=== PATIENT | male | born 1965 | race Two or more races ===

== ENCOUNTER 2024-02-01 11:57 | Emergency (ER) | payer MEDICARE, MEDICAID, SELFPAY ==
[2024-02-01 12:00] VITALS: BP 132/88; PULSE 62; RESP 19; TEMP 36.9; O2SAT 99; BMI 34.9
--- NOTE | 2024-02-01 12:00 | EKG_ITS ---
[facility] Test Date: 2024-02-01 Pat Name: FLORENCIO ELKINS Department: Room: - Gender: Male Mate Chief: : 1965 Requested By: ED Temporary Provider Order Number: [id number] Reading MD: ED Temporary Provider Measurements Intervals [place] Rate: 62 P: 51 OK: 148 QRS: -68 QRSD: 148 T: -6 QT: 417 QTc: 426 Interpretive Statements SINUS RHYTHM WITH OCCASIONAL SUPRAVENTRICULAR PREMATURE COMPLEXES RIGHT BUNDLE BRANCH BLOCK [120+ ms QRS DURATION, UPRIGHT V1, 40+ ms S IN I/aVL/V4/V5/V6] LEFT ANTERIOR FASCICULAR BLOCK [QRS AXIS <= -45, QR IN I, RS IN II] Compared to ECG 11/03/2022 23:03:54 No significant changes /store/S0/[id number].pdf
--- NOTE | 2024-02-01 12:27 | XR_ITS ---
Examination: PA lateral chest 2 views TECHNIQUE: Upright PA lateral chest 2 views Exam date and time: February 01, 2024 1234 hours INDICATIONS: Onset chest pain today FINDINGS: Normal heart size Lungs are clear The osseous structures are intact IMPRESSION: No active disease
--- NOTE | 2024-02-01 12:29 | PD.EDRME ---
Rapid Medical Screening Exam RME Arrival date/time: 02/01/24 11:57 58-year-old male presents to the emergency department with complaints of chest pain x 2 days. I have greeted and performed a focused initial assessment of this patient. Initial appropriate labs ordered at this time. A comprehensive ED assessment and evaluation of the patient and analysis of all test and completion of medical decision making process will be conducted by additional ED provider. Chief Complaint: Chest Pain Time Seen by Provider: 02/01/24 12:13 Vital signs: Vital Signs Temperature 98.5 F 02/01/24 12:00 Pulse Rate 62 02/01/24 12:00 Respiratory Rate 19 02/01/24 12:00 Blood Pressure 132/88 H 02/01/24 12:00 Pulse Oximetry (%) 99 02/01/24 12:00 Oxygen Delivery Method Room Air 02/01/24 12:00
[2024-02-01 12:38] LABS: Basophils % (Auto) 0 % (0-2.5); Eosinophils % (Auto) 1 % (0-10); Hematocrit 43.5 % (41.0-53.0); Hemoglobin 15.3 g/dL (13.5-16.0); Immature Granulocytes % (Auto) 0 % (0-0); Immature Granulocytes Auto 0.01 Thou/mm3 (0.00-0.00); Lymphocytes # (Auto) 1.3 Thou/mm3 (1.0-4.8); Lymphocytes % (Auto) 34 % (10-50); Mean Corpuscular HGB Conc 35.2 g/dl (31.0-37.0); Mean Corpuscular Volume 94 fL (80-100); Monocytes # (Auto) 0.3 Thou/mm3 (0.0-0.8); Monocytes % (Auto) 8 % (0-12); Neutrophils # (Auto) 2.3 Thou/mm3 (1.8-7.7); Neutrophils % (Auto) 57 % (37-80); Nucleated Red Blood Cell % 0 /100 WBC (0); Platelet Count 136 Thou/mm3 (140-440); RDW Standard Deviation 42.1 fL (35.1-43.9); Red Blood Count 4.64 Miln/mm3 (4.50-5.90)
[2024-02-01 13:11] LABS: Alanine Aminotransferase 21 U/L (10-49); Albumin, Serum 4.8 gm/dL (3.5-5.0); Albumin/Globulin Ratio 1.5 (1.2-2.2); Alkaline Phosphatase 69 U/L (46-116); Anion Gap 6 (7-16); Aspartate Amino Transferase 20 U/L (0-34); BUN/Creatinine Ratio 15 Ratio (12-20); Bilirubin,Total 0.4 mg/dL (0.3-1.2); Blood Urea Nitrogen 16 mg/dL (9-23); Calcium 10.2 mg/dL (8.3-10.6); Calcium (Corrected) 10.2 mg/dL (8.5-10.1); Carbon Dioxide 28.5 mMol/L (20.0-31.0); Chloride 103 mMol/L (98-107); Creatinine (Component) 1.1 mg/dL (0.6-1.3); Estimated Creatinine Clearance 79.5 mL/min (>60); Globulin 3.3 gm/dL (2.3-3.5); Glucose 122 mg/dL (74-106); Lipase 37 U/L (12-53); Osmolality,Calculated 276 (275-295); Potassium 3.4 mMol/L (3.4-5.1); Sodium 137 mMol/L (136-145); Total Protein 8.1 gm/dL (5.7-8.2); Troponin I < 0.020 ng/mL (0.0-0.045); eGFR > 60 See Note
[2024-02-01 13:40] LABS: Collection Type, Urine Clean Catch; Squamous Epithelial Cell,Urine 0 /hpf (0-5)
[2024-02-01 13:46] LABS: Bilirubin,Urine Negative (Negative); Blood,Urine Negative (Negative); Clarity,Urine Clear (Clear/Hazy); Color,Urine Colorless (Lt Yel-Yel); Glucose, Urine Negative (Negative); Ketones,Urine Negative (Negative); Leukocyte Esterase,Urine Negative (Negative); Nitrite,Urine Negative (Negative); PH,Urine 6.5 (5.0-7.0); Protein,Urine Negative (Neg - Trace); RBC,Urine 2 /hpf (0-3); Urobilinogen,Urine Negative mg/dL (0.0-1.0); WBC,Urine < 1 /hpf (0-5)
--- NOTE | 2024-02-01 17:17 | PD.EDCHEST ---
ED Chest Pain RME/HPI General Chief Complaint: Chest Pain Stated Complaint: CHEST PAIN WITH HTN; HEADACHE Time Seen by Provider: 02/01/24 12:13 Arrival date/time: 02/01/24 11:57 RME / HPI RME / HPI narrative: 02/01/24 11:57 58-year-old male presents to the emergency department with complaints of chest pain x 2 days. I have greeted and performed a focused initial assessment of this patient. Initial appropriate labs ordered at this time. A comprehensive ED assessment and evaluation of the patient and analysis of all test and completion of medical decision making process will be conducted by additional ED provider. DR. ALONZO SANTANA ED EVALUATION 58 year old male with history of hypertension, diabetes, anxiety presents to the ED for complaint of chest pain today. States about 15 and 10 days ago had experienced similar episodes of burning chest pain, located to the center of his chest without radiation, rating as moderate. Accompanied by intermittent shortness of breath and dizziness. Additionally reports some time last night had a sudden sharp pain to the left side of his head, near his ear, which made him feel anxious. Denies fevers, chills, sore throat, abdominal pain, n/v/d, or urinary symptoms. Related Data Home Medications ?Medication ?Instructions ?Recorded ?Confirmed benazepril 40 mg tablet 40 mg PO QDAY 08/06/20 01/09/22 amlodipine 10 mg tablet 10 mg PO QDAY 10/02/20 01/09/22 hydrocodone 10 mg-acetaminophen 1 tab PO Q6HR PRN Pain 10/02/20 01/09/22 325 mg tablet Previous Rx's ?Medication ?Instructions ?Recorded aluminum-mag hydroxide-simethicone 10 ml PO QID PRN indigestion #300 11/12/21 200 mg-200 mg-20 mg/5 mL oral susp mL (Maalox Advanced) omeprazole 20 mg capsule,delayed 20 mg PO QDAY #30 caps 11/12/21 release metoclopramide HCl 10 mg tablet 10 mg PO Q8H #90 tabs 01/09/22 (Reglan) sucralfate 1 gram tablet (Carafate) 1 g PO QID #120 tabs 01/09/22 Allergies Allergy/AdvReac Type Severity Reaction Status Date / Time No Known Allergies Allergy Verified 02/01/24 11:58 Review of Systems Review of Systems Narrative Review of Systems: GEN: No fever, no chills, no weight loss EYES: No discharge, no visual changes, no pain HEENT: No ear pain, no congestion, no sore throat PULM: +intermittent shortness of breath, no cough, no congestion CV: + chest pain, no dyspnea on exertion, no palpitations GI: No nausea, no vomiting, no diarrhea, no pain, no constipation : No frequency, no urgency and no dysuria MUSC/SKEL No joint pain, no back pain SKIN: No rash PSYCH: No hallucinations, no depression HEME/LYMPH: No easy bleeding or bruising tendencies NEURO: No weakness, +sharp pain to left side of head, no headache at this time ED Exam Narrative Physical exam: GENERAL APPEARANCE: Well hydrated, well nourished, in no acute distress. VITALS: All vitals were reviewed and the pulse ox is 99% on room air which is normal according to my interpretation. HEENT: Normocephalic, atramatic, EOMI, EACs are patent. There is no bulge or retraction. Throat without erythema or exudate. Moist oromucosa. No jaundice NECK: Supple, no JVD or bruits. CARDIOVASCULAR: Heart regular without S3-S4 or murmur. No rubs or gallops. LUNGS/CHEST: Clear to auscultation bilaterally. No rales, rhonchi, or wheezing. Normal inspection. ABDOMEN: Soft, nontender, with normal bowel sounds. No pulsatile masses. No rebound, rigidity, or guarding. No incarcerated hernia. Normal inspection and palpation. EXTREMITIES: Normal inspection and palpation. No edema, clubbing, or cyanosis. Intact CSM SKIN: Warm and dry without rashes. Normal inspection. MUSCULOSKELETAL: Normal inspection. No gross deformity, full ROM all extremities NEURO: Alert and oriented x3. Cranial nerves II through XII grossly intact. There are no other motor or sensory deficits noted. PSYCHIATRIC: Normal mood and affect. No psychosis Course Quality Measures none Orders Category Date Time Status EKG (ED ONLY) *Do not use* NOW Care 02/01/24 12:00 Completed EKG (ED Only) Stat Exams 02/01/24 12:00 Draft XR chest 2V Stat Exams 02/01/24 12:27 Completed CBC Stat Lab 02/01/24 12:32 Completed Comprehensive Metabolic Panel Stat Lab 02/01/24 12:32 Completed Lipase Stat Lab 02/01/24 12:32 Completed Magnesium Stat Lab 02/01/24 12:32 Completed Troponin I Stat Lab 02/01/24 12:32 Completed Troponin I Stat Lab 02/01/24 17:27 Ordered Urinalysis Stat Lab 02/01/24 13:22 Completed Vital Signs Vital signs: Vital Signs Temperature 98.5 F 02/01/24 12:00 Pulse Rate 62 02/01/24 12:00 Respiratory Rate 19 02/01/24 12:00 Blood Pressure 132/88 H 02/01/24 12:00 Pulse Oximetry (%) 99 02/01/24 12:00 Oxygen Delivery Method Room Air 02/01/24 12:00 Chest Pain MDM Narrative MDM Narrative:: Shannan Elam am scribing for and in the presence of Dr. Huertas. CBC is negative. CMP and lipase are negative. Magnesium negative. Troponin negative. UA is negative. Chest x-ray interpreted by me: Clear lungs. Heart normal. Mediastinum normal. Normal bones. No pneumothorax. No CHF. Twelve-lead EKG that was done at 1218 interpreted by me: Normal sinus rhythm. Heart rate of 62. Left axis deviation. Right bundle branch block. No ST elevation or depression. No PVC. No STEMI. Regular rate and rhythm. I saw the patient at approximately 5:30 PM. I ordered for the repeated troponin. 6 PM, pending repeated troponin, the patient is stable and is signed out to Patient data External records reviewed:: [facility] previous records (I reviewed ED visit on 11/03/2022) Clinical information provided by:: patient Social determinants that could affect healthcare access:: none Patient has the following chronic illnesses:: HTN, DM, anxiety How is presenting disease/condition affected by chronic disease/condition?: exacerbated by Evaluation data The following diagnostics were reviewed and interpreted by me:: lab results, radiology exam(s) and EKG tracing(s) Lab and/or radiology exams considered but not ordered:: None Interpretation Summary: Ordering Physician: Tanya Larios Date of Service: 02/01/24 Procedure(s): XR chest 2V Accession Number(s): [id number] cc: Enrique Bermudez MD; Larios,Tanya M [employer]~ Examination: PA lateral chest 2 views TECHNIQUE: Upright PA lateral chest 2 views Exam date and time: February 01, 2024 1234 hours INDICATIONS: Onset chest pain today FINDINGS: Normal heart size Lungs are clear The osseous structures are intact IMPRESSION: No active disease Dictated By: Enrique Bermudez MD Signed By: <Electronically signed by Enrique Bermudez MD in OV> 02/01/24 1302 Medications / Prescriptions Medications or Prescriptions considered but not ordered:: None Medication administrations:: See above Consultations Consultation(s) initiated? (list below): No Diagnosis Chest Pain Differential Diagnosis: pneumothorax, stable angina, atypical chest pain, st elevation myocardial infarction, costochondritis, chest pain and biliary colic Most likely diagnosis given after review of the tests above:: Chest pain, pending repeated troponin Admission Indicated Admission indicated?: not indicated Explain why admission is indicated or not indicated:: Patient signed out pending delta trop Admission Request Was there a request for admission?: No Disposition Plan Disposition Plan: other (specify) (1800: Patient signed out to Dr. Coe pending delta trop) Discharge Plan Plan Disposition Comment: Stable at signout Prescriptions/Referrals Prescriptions/Med Rec: No Action benazepril 40 mg Tablet 40 mg PO QDAY hydrocodone-acetaminophen 10-325 mg tablet 1 tab PO Q6HR PRN (Reason: Pain) Hold Instructions: Resume on 01/10/22. amlodipine 10 mg tablet 10 mg PO QDAY alum-mag hydroxide-simeth [Maalox Advanced] 200-200-20 mg/5 mL suspension 10 ml PO QID PRN (Reason: indigestion) Qty: 300 0RF Rx Instructions: administer between meals and at bedtime omeprazole 20 mg capsule,delayed release(DR/EC) 20 mg PO QDAY Qty: 30 0RF metoclopramide HCl [Reglan] 10 mg Tablet 10 mg PO Q8H Qty: 90 2RF sucralfate [Carafate] 1 gram Tablet 1 g PO QID Qty: 120 2RF Referrals: Jules Pagan MD [Primary Care Provider] - In 1 week Problem List Clinical Impression: Chest pain Patient/Caregiver Discharge Instructions Print Language: Croatian
[2024-02-01 18:45] LABS: Troponin I < 0.020 ng/mL (0.0-0.045)
[2024-02-01 20:28] VITALS: BP 125/67; PULSE 86; RESP 16; TEMP 36.8; O2SAT 99
== END 2024-02-01 20:28 | disposition home or self-care (01) ==
PROVIDERS: Nurse Practitioner Primary Care; Emergency Provider Emergency Medicine; PCP Family Medicine
DX: R07.9 Chest pain, unspecified (principal); I45.10 Unspecified right bundle-branch block; I10 Essential (primary) hypertension; E11.9 Type 2 diabetes mellitus without complications; F41.9 Anxiety disorder, unspecified
CPT/HCPCS: 36415; 71046; 80053; 81001; 83690; 83735; 84484; 85025; 93005; 99283

== ENCOUNTER 2024-02-28 20:10 | Emergency (ER) | payer MEDICARE, MEDICAID, SELFPAY ==
--- NOTE | 2024-02-28 20:14 | EKG_ITS ---
[facility] Test Date: 2024-02-28 Pat Name: FLORENCIO ELKINS Department: Room: - Gender: Male Vice President Safety: : 1965 Requested By: ED Temporary Provider Order Number: [id number] Reading MD: ED Temporary Provider Measurements Intervals [place] Rate: 74 P: 48 DE: 154 QRS: -68 QRSD: 148 T: -12 QT: 404 QTc: 448 Interpretive Statements SINUS RHYTHM WITH OCCASIONAL SUPRAVENTRICULAR PREMATURE COMPLEXES RIGHT BUNDLE BRANCH BLOCK [120+ ms QRS DURATION, UPRIGHT V1, 40+ ms S IN I/aVL/V4/V5/V6] LEFT ANTERIOR FASCICULAR BLOCK [QRS AXIS <= -45, QR IN I, RS IN II] POSSIBLE SEPTAL MYOCARDIAL INFARCTION , PROBABLY OLD [30 ms Q WAVE IN V1/V2] MODERATE T-WAVE ABNORMALITY, CONSIDER ANTEROLATERAL ISCHEMIA [-0.1+ mV T WAVE IN V3-V6] Compared to ECG 02/01/2024 12:18:30 Myocardial infarct finding now present T-wave abnormality now present Possible ischemia now present /store/S0/[id number].pdf
[2024-02-28 20:23] VITALS: BP 171/119; BP 172/111; PULSE 65; RESP 20; TEMP 37.1; O2SAT 98
--- NOTE | 2024-02-28 20:31 | XR_ITS ---
Examination: PA chest single view Technique: Upright PA chest single view Exam date and time: September 28, 20232039 hrs. Comparison February 01, 2024 Indications: Chest pain today. Findings: Normal heart size Lungs are clear. The osseous structures are intact Impression: No active disease
--- NOTE | 2024-02-28 20:31 | PD.EDRME ---
Rapid Medical Screening Exam E Arrival date/time: 02/28/24 20:10 58M with history of HTN and pre-DM presents to ED with 3 hours of CP and some N/V. Patient denies URI symptoms. Chief Complaint: Chest Pain Vital signs: Vital Signs Temperature 98.8 F 02/28/24 20:23 Pulse Rate 65 02/28/24 20:23 Respiratory Rate 20 02/28/24 20:23 Blood Pressure 172/111 H 02/28/24 20:23 Pulse Oximetry (%) 98 02/28/24 20:23 Oxygen Delivery Method Room Air 02/28/24 20:23
[2024-02-28 20:47] LABS: Basophils % (Auto) 0 % (0-2.5); Eosinophils # (Auto) 0.1 Thou/mm3 (0.0-0.5); Eosinophils % (Auto) 2 % (0-10); Hematocrit 45.4 % (41.0-53.0); Immature Granulocytes % (Auto) 0 % (0-0); Lymphocytes # (Auto) 2.8 Thou/mm3 (1.0-4.8); Lymphocytes % (Auto) 49 % (10-50); Mean Corpuscular HGB Conc 35.2 g/dl (31.0-37.0); Mean Corpuscular Hemoglobin 33.1 pg (25.0-35.0); Mean Corpuscular Volume 94 fL (80-100); Monocytes # (Auto) 0.5 Thou/mm3 (0.0-0.8); Monocytes % (Auto) 8 % (0-12); Neutrophils # (Auto) 2.4 Thou/mm3 (1.8-7.7); Neutrophils % (Auto) 41 % (37-80); Nucleated Red Blood Cell % 0 /100 WBC (0); Platelet Count 144 Thou/mm3 (140-440); RDW Standard Deviation 42.4 fL (35.1-43.9); Red Blood Count 4.84 Miln/mm3 (4.50-5.90); White Blood Count 5.7 Thou/mm3 (3.8-10.6)
[2024-02-28] MEDS: ONDANSETRON ODT 4 MG TABRAP PO (20:48)
[2024-02-28 21:04] LABS: Alanine Aminotransferase 12 U/L (10-49); Albumin, Serum 5.1 gm/dL (3.5-5.0); Albumin/Globulin Ratio 1.4 (1.2-2.2); Alkaline Phosphatase 80 U/L (46-116); Anion Gap 8 (7-16); Aspartate Amino Transferase 18 U/L (0-34); BUN/Creatinine Ratio 15 Ratio (12-20); Bilirubin,Total 0.4 mg/dL (0.3-1.2); Blood Urea Nitrogen 16 mg/dL (9-23); Calcium 10.7 mg/dL (8.3-10.6); Calcium (Corrected) 10.7 mg/dL (8.5-10.1); Carbon Dioxide 30.3 mMol/L (20.0-31.0); Chloride 101 mMol/L (98-107); Creatinine (Component) 1.1 mg/dL (0.6-1.3); Globulin 3.6 gm/dL (2.3-3.5); Glucose 149 mg/dL (74-106); Lipase 84 U/L (12-53); Osmolality,Calculated 281 (275-295); Potassium 3.3 mMol/L (3.4-5.1); Sodium 139 mMol/L (136-145); Total Protein 8.7 gm/dL (5.7-8.2); Troponin I < 0.020 ng/mL (0.0-0.045); eGFR > 60 See Note
[2024-02-28 21:21] VITALS: BP 175/97; PULSE 67; RESP 20; O2SAT 97
[2024-02-28 21:48] LABS: Collection Type, Urine Clean Catch; Squamous Epithelial Cell,Urine 0 /hpf (0-5)
[2024-02-28 22:16] LABS: Bilirubin,Urine Negative (Negative); Blood,Urine Negative (Negative); Clarity,Urine Clear (Clear/Hazy); Color,Urine Colorless (Lt Yel-Yel); Culture Indicated,Urine Not Indicated; Glucose, Urine Negative (Negative); Ketones,Urine Negative (Negative); Leukocyte Esterase,Urine Negative (Negative); Nitrite,Urine Negative (Negative); PH,Urine 6.5 (5.0-7.0); Protein,Urine Negative (Neg - Trace); RBC,Urine < 1 /hpf (0-3); Specific Gravity,Urine 1.007 (1.001-1.035); Urobilinogen,Urine Negative mg/dL (0.0-1.0); WBC,Urine < 1 /hpf (0-5)
[2024-02-28 23:06] LABS: Glucose Estimated Average 111 mg/dL (80-131); Hemoglobin A1C 5.5 % Hgb (4.8-6.0)
[2024-02-28 23:21] LABS: Troponin I < 0.020 ng/mL (0.0-0.045)
[2024-02-28 23:33] LABS: Amphetamine/Methamp Scrn,U Negative (Negative); Barbiturate Screen,Urine Negative (Negative); Benzodiazepines Screen,Urine Negative (Negative); Benzoylecgonine Screen, Ur Negative (Negative); Fentanyl Screen,Urine Negative (Negative); Opiate Screen,Urine Positive (Negative); THC Screen,Urine Negative (Negative)
[2024-02-29 00:26] VITALS: BP 118/78; PULSE 75; RESP 16; TEMP 36.7; O2SAT 96
--- NOTE | 2024-03-29 13:14 | EDNOTE_ITS ---
ED Chest Pain RME/HPI General Chief Complaint: Chest Pain Stated Complaint: Chest Pain for 3 hrs Arrival date/time: 02/28/24 20:10 RME / HPI RME / HPI narrative: 02/28/24 20:10 58M with history of HTN and pre-DM presents to ED with 3 hours of CP and some N/V. Patient denies URI symptoms. DR RODNEY MAIN ED EVALUATION: 58 yo male patient with h/o HTN c/o substernal CP, nonradiating with mild SOB. Similar episode last month. Denies fever, cough. Related Data Home Medications ?Medication ?Instructions ?Recorded ?Confirmed benazepril 40 mg tablet 40 mg PO QDAY 08/06/20 01/09/22 amlodipine 10 mg tablet 10 mg PO QDAY 10/02/20 01/09/22 hydrocodone 10 mg-acetaminophen 1 tab PO Q6HR PRN Pain 10/02/20 01/09/22 325 mg tablet Previous Rx's ?Medication ?Instructions ?Recorded aluminum-mag hydroxide-simethicone 10 ml PO QID PRN indigestion #300 11/12/21 200 mg-200 mg-20 mg/5 mL oral susp mL (Maalox Advanced) omeprazole 20 mg capsule,delayed 20 mg PO QDAY #30 caps 11/12/21 release metoclopramide HCl 10 mg tablet 10 mg PO Q8H #90 tabs 01/09/22 (Reglan) sucralfate 1 gram tablet (Carafate) 1 g PO QID #120 tabs 01/09/22 Allergies Allergy/AdvReac Type Severity Reaction Status Date / Time No Known Allergies Allergy Verified 02/01/24 11:58 Review of Systems Review of Systems Narrative Review of Systems: CONST: Negative for fever, body aches and chills. HENT: Negative for neck pain/stiffness, headache, congestion, sore throat, swelling. EYES: Negative for discharge/pain or vision changes. RESP: Negative for cough/hemoptysis and shortness of breath. CV: Negative chest pain, difficulty breathing, palpitations. ABD: Negative pain, nausea, vomiting. : Negative increase frequency, dysuria, blood in urine or stool. MUSC: Negative for muscle aches, edema. SKIN: Negative rash, lesions/sores. NEURO: Negative headache, dizziness, weakness. ED Exam Narrative Physical exam: GENERAL APPEARANCE: alert and oriented x 4, well-developed, well-nourished, no acute distress HEENT: Normocephalic, atraumatic; pupils equal, round, reactive to light; EOMI; mucous membranes pink, moist; oropharynx clear NECK: Supple LUNGS: CTABL; no wheezes, no rales, no rhonchi HEART: Regular rate, regular rhythm; normal S1, S2; no murmurs ABDOMEN: non distended; normal BS; soft, no tenderness, no guarding, no rebound; no masses, no organomegaly, no hernia BACK: no CVA tenderness EXTREMITIES: atraumatic; no edema NEUROLOGIC: awake; alert and oriented x4; cranial nerves II-XII grossly intact; no focal sensory or motor deficits PSYCHIATRIC: appropriate mood and affect SKIN: warm, dry, normal color; no rashes Course Quality Measures none Orders Category Date Time Status EKG (ED ONLY) *Do not use* NOW Care 02/28/24 20:14 Completed EKG (ED Only) Stat Exams 02/28/24 20:14 Draft XR chest 1V portable Stat Exams 02/28/24 20:31 Completed A1C [Glycohemoglobin w (eAG)] Stat Lab 02/28/24 20:38 Completed CBC Stat Lab 02/28/24 20:38 Completed Comprehensive Metabolic Panel Stat Lab 02/28/24 20:38 Completed Drug Screen,Urine Stat Lab 02/28/24 21:36 Completed Lipase Stat Lab 02/28/24 20:38 Completed Magnesium Stat Lab 02/28/24 20:38 Completed Troponin I Stat Lab 02/28/24 20:38 Completed Troponin I Stat Lab 02/28/24 22:54 Completed Urinalysis, C/S if Indicated Stat Lab 02/28/24 21:36 Completed Ondansetron Odt [Zofran Odt] Med 02/28/24 20:31 Discontinued 4 mg PO X1 ONE Vital Signs Vital signs: Vital Signs Temperature 98.8 F 02/28/24 20:23 Pulse Rate 65 02/28/24 20:23 Respiratory Rate 20 02/28/24 20:23 Blood Pressure 172/111 H 02/28/24 20:23 Pulse Oximetry (%) 98 02/28/24 20:23 Oxygen Delivery Method Room Air 02/28/24 20:23 Chest Pain Patient data External records reviewed:: [facility] previous records Clinical information provided by:: patient Social determinants that could affect healthcare access:: none Patient has the following chronic illnesses:: HTN How is presenting disease/condition affected by chronic disease/condition?: uneffected by Evaluation data The following diagnostics were reviewed and interpreted by me:: lab results, radiology exam(s) and EKG tracing(s) Lab and/or radiology exams considered but not ordered:: none Interpretation Summary: as above Medications / Prescriptions Medications or Prescriptions considered but not ordered:: none Medication administrations:: Medication Administration History Discontinued Medications Ondansetron HCl (Ondansetron Odt 4 Mg Tabrap) 4 mg PO X1 ONE; Protocol Stop: 02/28/24 20:32 Last Admin: 02/28/24 20:48 Dose: 4 mg Documented By: SF as above Consultations Consultation(s) initiated? (list below): No Diagnosis Chest Pain Differential Diagnosis: pneumothorax, stable angina, unstable angina pectoris, atypical chest pain, st elevation myocardial infarction and chest pain Most likely diagnosis given after review of the tests above:: chest pain Admission Indicated Admission indicated?: not indicated Admission Request Was there a request for admission?: No Disposition Plan Disposition Plan: Discharge Discharge Attestation Discharge Attestation: The patient and all family members were given an opportunity to ask questions and understood the discharge instructions. Discharge instructions specifically effects, indications for sooner follow up or return to the emergency department, and the expected course of current diagnosis. Patient condition: Stable Discharge Plan Plan Patient Disposition: HOME (Self Care) Prescriptions/Referrals Prescriptions/Med Rec: No Action benazepril 40 mg Tablet 40 mg PO QDAY hydrocodone-acetaminophen 10-325 mg tablet 1 tab PO Q6HR PRN (Reason: Pain) Hold Instructions: Resume on 01/10/22. amlodipine 10 mg tablet 10 mg PO QDAY alum-mag hydroxide-simeth [Maalox Advanced] 200-200-20 mg/5 mL suspension 10 ml PO QID PRN (Reason: indigestion) Qty: 300 0RF Rx Instructions: administer between meals and at bedtime omeprazole 20 mg capsule,delayed release(DR/EC) 20 mg PO QDAY Qty: 30 0RF metoclopramide HCl [Reglan] 10 mg Tablet 10 mg PO Q8H Qty: 90 2RF sucralfate [Carafate] 1 gram Tablet 1 g PO QID Qty: 120 2RF Referrals: Jules Pagan MD [Primary Care Provider] - In 1 week Problem List Clinical Impression: Chest pain Patient/Caregiver Discharge Instructions Education Materials: ED Chest Pain, Uncertain Cause Print Language: Monegasque Stand Alone Forms: Erika Award Info., Patient Portal Info Letter
== END 2024-02-29 00:27 | disposition home or self-care (01) ==
PROVIDERS: Physician Assistant; Emergency Provider Emergency Medicine; PCP Family Medicine
DX: R07.9 Chest pain, unspecified (principal); R11.2 Nausea with vomiting, unspecified; I49.1 Atrial premature depolarization; I45.10 Unspecified right bundle-branch block; I44.4 Left anterior fascicular block; I10 Essential (primary) hypertension
CPT/HCPCS: 36415; 71045; 80053; 80307; 81001; 83036; 83690; 83735; 84484; 85025; 93005; 99283; Q0162

== ENCOUNTER → 2024-05-27 | Outpatient (CLI) | payer MEDICARE, MEDICAID, SELFPAY ==
[2024-05-27 08:39] LABS: Basophils % (Auto) 0 % (0-2.5); Eosinophils # (Auto) 0.1 Thou/mm3 (0.0-0.5); Eosinophils % (Auto) 2 % (0-10); Hematocrit 42.4 % (41.0-53.0); Hemoglobin 14.8 g/dL (13.5-16.0); Immature Granulocytes % (Auto) 0 % (0-0); Lymphocytes # (Auto) 1.6 Thou/mm3 (1.0-4.8); Lymphocytes % (Auto) 45 % (10-50); Mean Corpuscular HGB Conc 34.9 g/dl (31.0-37.0); Mean Corpuscular Hemoglobin 33.4 pg (25.0-35.0); Mean Corpuscular Volume 96 fL (80-100); Monocytes # (Auto) 0.3 Thou/mm3 (0.0-0.8); Monocytes % (Auto) 9 % (0-12); Neutrophils # (Auto) 1.5 Thou/mm3 (1.8-7.7); Neutrophils % (Auto) 43 % (37-80); Nucleated Red Blood Cell % 0 /100 WBC (0); Platelet Count 148 Thou/mm3 (140-440); RDW Standard Deviation 44.2 fL (35.1-43.9); Red Blood Count 4.43 Miln/mm3 (4.50-5.90); White Blood Count 3.4 Thou/mm3 (3.8-10.6)
[2024-05-27 09:29] LABS: Collection Type, Urine Clean Catch
[2024-05-27 09:56] LABS: Glucose Estimated Average 114 mg/dL (80-131); Hemoglobin A1C 5.6 % Hgb (4.8-6.0)
[2024-05-27 10:02] LABS: Anion Gap 10 (7-16); BUN/Creatinine Ratio 22 Ratio (12-20); Blood Urea Nitrogen 22 mg/dL (9-23); Chloride 106 mMol/L (98-107); Potassium 3.6 mMol/L (3.4-5.1); Sodium 145 mMol/L (136-145); eGFR > 60 See Note
[2024-05-27 10:03] LABS: Alanine Aminotransferase 20 U/L (10-49); Albumin, Serum 4.4 gm/dL (3.5-5.0); Albumin/Globulin Ratio 1.4 (1.2-2.2); Alkaline Phosphatase 54 U/L (46-116); Aspartate Amino Transferase 21 U/L (0-34); Bilirubin,Total 0.6 mg/dL (0.3-1.2); Cardiac Risk Estimate 3.8 RATIO (4.0-6.7); Cholesterol 215 mg/dL (132-200); Globulin 3.2 gm/dL (2.3-3.5); Glucose 101 mg/dL (74-106); HDL Cholesterol 56 mg/dL (40-60); LDL Cholesterol,Calculated 137 mg/dL (0-130); Osmolality,Calculated 292 (275-295); Thyroid Stimulating Hormone 0.33 uIU/mL (0.55-4.78); Total Protein 7.6 gm/dL (5.7-8.2); Triglycerides 111 mg/dL (30-150)
[2024-05-27 10:11] LABS: Prostate Specific Antigen 2.65 ng/mL (0-4.00)
[2024-05-27 10:14] LABS: Bilirubin,Urine Negative (Negative); Blood,Urine Negative (Negative); Clarity,Urine Clear (Clear/Hazy); Color,Urine Lt-Yellow (Lt Yel-Yel); Culture Indicated,Urine Not Indicated; Glucose, Urine Negative (Negative); Ketones,Urine Negative (Negative); Leukocyte Esterase,Urine Negative (Negative); Nitrite,Urine Negative (Negative); Protein,Urine Negative (Neg - Trace); RBC,Urine < 1 /hpf (0-3); Specific Gravity,Urine 1.022 (1.001-1.035); Squamous Epithelial Cell,Urine < 1 /hpf (0-5); Urobilinogen,Urine Negative mg/dL (0.0-1.0); WBC,Urine < 1 /hpf (0-5)
[2024-05-30 06:41] LABS: Fecal Globin Result NOT DETECTED (NOT DETECTED)
== END | disposition home or self-care (01) ==
PROVIDERS: PCP Family Medicine; Referring Provider Nurse Practitioner Family; Visit Provider Nurse Practitioner Family
DX: Z00.00 Encounter for general adult medical examination without abnormal findings (principal)
CPT/HCPCS: 36415; 80053; 80061; 81001; 82274; 83036; 84153; 84443; 85025; G0328

== ENCOUNTER → 2024-07-31 | Outpatient (CLI) | payer MEDICARE, MEDICAID, SELFPAY ==
--- NOTE | 2024-07-31 09:08 | XR_ITS ---
Examination: Shoulder,left, 3 views Technique: Shoulder AP internal rotation, AP external rotation, Y view shoulder, 3 views Exam date and time :July 31, 2024 at 0934 hours INDICATIONS: Left shoulder pain beginning 3 months ago. FINDINGS: Moderate osteopenia Moderate narrowing glenohumeral joint No shoulder fracture or dislocation IMPRESSION: Moderate narrowing glenohumeral joint
== END | disposition home or self-care (01) ==
PROVIDERS: PCP Family Medicine; Referring Provider Family Medicine; Visit Provider Family Medicine
DX: M25.812 Other specified joint disorders, left shoulder (principal)
CPT/HCPCS: 73030

== ENCOUNTER 2025-01-12 22:29 | Emergency (ER) | payer MEDICARE, MEDICAID, SELFPAY ==
[2025-01-12 22:31] VITALS: BMI 34.9
[2025-01-12 23:15] VITALS: BP 147/93; PULSE 76; RESP 17; TEMP 36.9; O2SAT 98
--- NOTE | 2025-01-13 00:24 | PC.NURSE ---
Pt did not answer when name was called and was not found outside.
--- NOTE | 2025-01-13 00:38 | PC.NURSE ---
Pt did not answer when name was called and was not foun d outside.
--- NOTE | 2025-01-13 00:56 | PC.NURSE ---
Pt did not answer when name was called in the lobby and was not found outside.
== END 2025-01-13 01:00 | disposition left against medical advice (07) ==
LOC: SERX 01-13 01:23
PROVIDERS: Emergency Provider Emergency Medicine
DX: Z53.21 Procedure and treatment not carried out due to patient leaving prior to being seen by health care provider (principal)
CPT/HCPCS: 99281